=== PATIENT | female | born 1965 | race Caucasian/White ===

== ENCOUNTER 2017-03-23 08:34 | Emergency (ER) | payer SELFPAY ==
[~2017-03-23] VITALS: Ht 170.2 cm; Wt 63.6 kg
[2017-03-23] MEDS ORDERED: FLEXERIL10 MG PO (09:42)
[2017-03-23] MEDS ORDERED: NORCO 5/3251 TABLET PO (09:42)
[2017-03-23] MEDS ORDERED: MEDROL DOSEPAK4 MG PO (09:42)
[2017-03-23 10:53] VITALS: BP 136/97
== END 2017-03-23 10:53 | disposition home or self-care (01) ==
LOC: EME 08:34
DX: M54.16 Radiculopathy, lumbar region (principal)
CPT/HCPCS: 81003; 99281; 99284; J3010; J7512